=== PATIENT | female | born 1945 | race Caucasian/White ===

== ENCOUNTER 2025-02-17 10:08 | Emergency (ER) | payer MEDICARE, OTHER | END 2025-02-17 11:28 | disposition home or self-care (01) | LOC: LB.ED 10:08 | DX: S83.421A Sprain of lateral collateral ligament of right knee, initial encounter (principal); I10 Essential (primary) hypertension; E11.9 Type 2 diabetes mellitus without complications; Z86.16 Personal history of COVID-19; Z79.899 Other long term (current) drug therapy; Z79.84 Long term (current) use of oral hypoglycemic drugs; Z88.2 Allergy status to sulfonamides; X50.9XXA Other and unspecified overexertion or strenuous movements or postures, initial encounter; Y92.009 Unspecified place in unspecified non-institutional (private) residence as the place of occurrence of the external cause | CPT/HCPCS: 73562; 99283; A9270 ==

== ENCOUNTER 2025-06-01 10:50 | Emergency (ER) | payer MEDICARE, OTHER | END 2025-06-01 11:34 | disposition home or self-care (01) | LOC: LB.ED 10:50 | DX: N39.0 Urinary tract infection, site not specified (principal); I10 Essential (primary) hypertension; E11.9 Type 2 diabetes mellitus without complications; Z88.8 Allergy status to other drugs, medicaments and biological substances; Z79.899 Other long term (current) drug therapy | CPT/HCPCS: 99283 ==